=== PATIENT | male | born 1940 | race Caucasian/White ===

== ENCOUNTER 2021-11-06 17:48 | Inpatient (IN) | payer OTHER ==
[~2021-11-06] VITALS: Ht 172.7 cm; Wt 86.2 kg
[~2021-11-06 17:48] MED LIST: ACETAMINOPHEN325 M1 PO; ASPIRIN EC325 M1 PO; ASPIRIN EC81 M1 PO; CARVEDILOL25 MG PO; CENTRUM TABLET1 TAB OR; COLACE100 MG PO; COMBIVENT INH; FISH OIL 1,0001 EAC5 PO; FISHOIL PO; FLOMAX PO; GLUCOPHAGE500 MG PO; GLUCOSAMINE &1 EAC1 PO; HYDROCHLOROTHIA25 M1 PO; LANTUS SQ; LIPITOR40 MG PO; LISINOPRIL10 MG PO; LISINOPRIL20 MG PO; LORTAB 5-500 T1 EAC1 PO; NITROGLYCERIN0.4 MG SL; NOVOLOG100 UNIT/1; POTASSIUM20 PO; SILVADENE20 GM TP; SIMVASTATIN40 MG PO; TOPROL XL50 MG PO; VALIUM5 MG PO; VITAMIN B-12500 MCG PO
[2021-11-06 17:55] VITALS: BP 193/88
[2021-11-06 18:17] LABS: ABSOLUTE NEUTROPHILS 4.8 thou/uL (1.4-8.2); EOSINOPHILS 1.8 % (0.0-3.0); HEMATOCRIT 47.3 % (42.0-52.0); HEMOGLOBIN 16.2 gm/dL (14.0-18.0); LYMPHOCYTES 24.9 % (24.0-44.0); MCH 30.7 pg (26.0-34.0); MCHC 34.3 g/dL (28.0-37.0); MCV 89.5 fL (80.0-100.0); MONOCYTES 11.7 % (1.0-8.0); PLATELET COUNT 210 thou/uL (150-400); POLYS 60.6 % (36.0-66.0); RBC 5.29 mil/uL (4.50-6.00); RDW 13.8 % (10.5-14.5)
[2021-11-06 18:31] LABS: CALCIUM 9.4 mg/dL (8.5-10.1); CREATININE 1.4 mg/dL (0.7-1.3); POTASSIUM 4.4 mmol/L (3.5-5.1)
[2021-11-06 18:36] LABS: ALBUMIN 3.8 g/dL (3.4-5.0); DIRECT BILIRUBIN 0.1 mg/dL (<0.1-0.2); TOTAL BILIRUBIN 0.4 mg/dL (0.2-1.0); TOTAL PROTEIN 7.1 g/dL (6.4-8.2)
[2021-11-06 18:43] LABS: URINE BILIRUBIN NEGATIVE (Negative); URINE BLOOD TRACE (Negative); URINE CLARITY CLEAR; URINE COLOR YELLOW; URINE GLUCOSE-RANDOM* 3+ (Negative); URINE KETONES NEGATIVE (Negative); URINE LEUKOCYTES-REFLEX NEGATIVE (Negative); URINE NITRITE-REFLEX NEGATIVE (Negative); URINE PROTEIN (DIPSTICK) 2+ (Negative); URINE SPECIFIC GRAVITY 1.025 (1.005-1.035); URINE UROBILINOGEN 0.2 E.U./dl (0.2-1.0)
[2021-11-06 18:58] LABS: BACTERIA-REFLEX 1-9 Few /HPF (None Seen); CASTS None Seen /LPF (None Seen); CRYSTALS None Seen /LPF (None Seen); SQUAMOUS 0-3 Few /LPF (0-3); URINE RBC 1-2 Rare /HPF (NONE SEEN); URINE WBC-REFLEX 0-5 Rare /HPF (0-5)
--- NOTE | 2021-11-06 19:06 | NUR ---
Pt report given to CALLIE Ya
[2021-11-06 19:27] LABS: INR 0.97; PROTIME 10.6 Seconds (10.5-12.1)
[2021-11-06 21:37] VITALS: BP 165/94
[2021-11-06 21:46] VITALS: BP 129/50
[2021-11-06 22:07] VITALS: BP 146/104
--- NOTE | 2021-11-06 22:17 | NUR ---
ADMISSION: PT ARRIVED ON THE UNIT AT 3482
[2021-11-07 03:38] VITALS: BP 133/72
[2021-11-07 05:15] LABS: CHOLESTEROL 182 mg/dL (<200); HDL CHOLESTEROL 36 mg/dL (>40); HEMATOCRIT 41.6 % (42.0-52.0); HEMOGLOBIN 14.3 gm/dL (14.0-18.0); LDL CHOLESTEROL 124 mg/dL (<100); MCHC 34.5 g/dL (28.0-37.0); MCV 89.8 fL (80.0-100.0); RBC 4.63 mil/uL (4.50-6.00); RDW 13.7 % (10.5-14.5); TC:HDL 5.1 Ratio (Not establshd); TRIGLYCERIDE 110 mg/dL (<150); VLDL 22 mg/dL (<40); WBC 6.1 thou/uL (4.0-11.0)
[2021-11-07 05:27] LABS: CALCIUM 8.2 mg/dL (8.5-10.1); CREATININE 1.1 mg/dL (0.7-1.3); MAGNESIUM 1.8 mg/dL (1.8-2.4); POTASSIUM 3.5 mmol/L (3.5-5.1)
[2021-11-07 05:39] LABS: SERUM ASSESSMENT Clear
[2021-11-07 06:55] VITALS: BP 115/72
--- NOTE | 2021-11-07 07:07 | EKG ---
[place] [address] [facility] [email or web address] [address] ELECTROCARDIOGRAM REPORT Name: FLOR ISSA Room #: 361-P ADM IN M.R.#: [id number] Admission: 11/06/21 Attend Phys: Hernan Prado MD Discharge: Date of : 42 Report #: [id number] [facility] ED Test Date: 2021-11-06 Test Time: 17:59:49 Pat Name: FLOR ISSA Department: Room: 361 Gender: M Project Designer: : 1940 Requested By: Eric Peterson Order Number: [id number] MD: Blake Oviedo Measurements Intervals Una Rate: 110 P: ID: QRS: -6 QRSD: 131 T: 18 QT: 357 QTc: 484 Interpretive Statements Trigeminy Right bundle branch block Baseline wander in lead(s) V5,V6 Compared to ECG 07/04/2011 08:04:34 Right bundle-branch block now present Sinus rhythm no longer present Electronically Signed On 11-07-2021 7:07:23 BILLET BED OPERATOR by Blake Oviedo [email or web address] <ELECTRONICALLY SIGNED> By: Blake Oviedo MD, [facility] [id number] Blake Oviedo MD, FAC /EPI
--- NOTE | 2021-11-07 11:38 | 2DMMODE ---
[facility] [place] [address] [place] [address] 2 D/M-MODE ECHOCARDIOGRAM Name: FLOR ISSA Room #: 361-P ADM IN M.R.#: [id number] Admission: 11/06/21 Attend Phys: Hernan Prado MD Discharge: Date of : 42 Report #: [id number] THIS REPORT FOR: cc: Manuel Parr MD,Chris Nevarez MD, MD ~ APPROVED REPORT Study performed: 11/07/2021 10:33:37 EXAM: Comprehensive 2D, Doppler, and color-flow Echocardiogram Patient Location: Bedside Room #: 361 Status: routine BSA: 1.99 HR: 100 bpm BP: 115/72 mmHg Rhythm: RBBB/PVCs Other Information Study Quality: Good Technically limited study due to bi/trigeminy PVCs. Indications CVA. Hx: NV, Afib, DM, HTN, HLP. Echo Enhancing Agent Indication: Rule out Shunt Agent(s) / Amount(s) Used: Agitated Saline 7 cc 2D Dimensions IVSd: 11.16 (7-11mm) LVOT Diam: 21.46 (18-24mm) LVDd: 58.38 mm PWd: 9.53 (7-11mm) LVDs: 48.60 (25-40mm) Left Atrium: 47.23 (27-40mm) Aortic Root: 42.60 mm Volumes Left Atrial Volume (Systole) Single Plane 4CH: 90.60 mL Single Plane 2CH: 103.35 mL LA ESV Index: 52.00 mL/m2 [facility] [place] [address] 2 D/M-MODE ECHOCARDIOGRAM Name: MAEGANFLOR Room #: 361-P ADM IN M.R.#: [id number] Admission: 11/06/21 Attend Phys: Hernan Prado MD Discharge: Date of : 42 Report #: [id number] Aortic Valve AoV Peak Ruben.: 0.92 m/s AO Peak Gr.: 3.40 mmHg LVOT Max P.65 mmHg LVOT Max V: 0.64 m/s ANDRY Vmax: 2.52 cm2 Pulmonary Valve PV Peak Ruben.: 0.89 m/s PV Peak Gr.: 3.20 mmHg Tricuspid Valve TR Peak Ruben.: 2.89 m/s RAP Estimate: 5.00 mmHg TR Peak Gr.: 34.00 mmHg PA Pressure: 39.00 mmHg Left Ventricle Left ventricle is at the upper limits of normal. mild inferoseptal hypokinesis There is normal left ventricular wall thickness. Left ventricular systolic function is mild to moderately decreased. LVEF is 40-45% (Frequent PVCs). This study is not technically sufficient to allow evaluation of the LV diastolic function. Right Ventricle The right ventricle is normal size. The right ventricular systolic function is normal. Atria Left atrium is dilated. No shunting noted with bubble study. Right atrium is at the upper limits of normal. Aortic Valve Aortic valve is trileaflet; mildly calcified. Trace aortic regurgitation. There is no aortic valvular stenosis. Mitral Valve The mitral valve is normal in structure. Moderate to severe mitral regurgitation. Tricuspid Valve The tricuspid valve is normal in structure. Trace to mild tricuspid regurgitation. Estimated PAP is 40mmHg. Pulmonic Valve The pulmonary valve is normal in structure. Trace pulmonic regurgitation. [facility] [address] [place] [address] 2 D/M-MODE ECHOCARDIOGRAM Name: FLOR ISSA Room #: 361-P ADM IN M.R.#: [id number] Admission: 11/06/21 Attend Phys: Hernan Prado MD Discharge: Date of : 42 Report #: [id number] Great Vessels Aortic root is dilated (4.3cm). Ascending aorta is not well visualized. IVC is normal in size and collapses >50% with inspiration. Pericardium There is no pericardial effusion. <Conclusion> Left ventricle is at the upper limits of normal. There is normal left ventricular wall thickness. LVEF is 40-45% (Frequent PVCs). mild inferoseptal hypokinesis The right ventricle is normal size. Left atrium is dilated. Aortic valve is trileaflet; mildly calcified. Trace aortic regurgitation. The mitral valve is normal in structure. Moderate mitral regurgitation. The tricuspid valve is normal in structure. Trace to mild tricuspid regurgitation. Estimated PAP is 40mmHg. The pulmonary valve is normal in structure. Trace pulmonic regurgitation. Aortic root is dilated (4.3cm). There is no pericardial effusion. No shunting noted with bubble study. <ELECTRONICALLY SIGNED> By: Chris Lea MD 11/07/21 1137 1137 113 Chris Lea MD /INF
--- NOTE | 2021-11-07 13:07 | NUR ---
CARE ASSUMED THIS AM, PT IS ALERT TO SELF. ABLE TO FOLLOW SOME COMMANDS. EXPRESSIVE APHASIA PRESENT. UNABLE TO TELL ME HIS FULL NAME OR . NIH SCORE 7. PT NEEDS MINIMAL ASSIT TO BATHROOM, STEADY ON FEET. NO DRIFT NOTED ON EXTREMITIES. UO IN THE CHAIR MICHAELLE. WAITING FOR MRI. CONSULT TO NEURO PLACED PER DR. ERNST VERBAL ORDER. TRIED CALLING PT FOR MRI SCREENING SHEET UNABLE TO REACH HER. WAS ABLE TO REACH PT YOHANARTRISH. MRI SCREENING SHEET COMPLTED AND FAX BACK TO MRI. FALL PRECAUTIONS IN PLACE.
--- NOTE | 2021-11-07 15:37 | NUR ---
PER REYNA ARRIETA INITIAL ASSESSMENT: MEENAKSHI spoke with nursing and attending physician. Pt was admitted from home due to CVA. Therapy evals ordered and 5N consulted. Pt is unable to participate in conversation due to aphasia. MEENAKSHI spoke with pt's , Mira, via phone. Introduced role of SW. Pt's states that over the weekend, pt was not able to complete conversations. Pt has not been taking his medications or following his diet. Pt's PCP is Dr. Shawn Salazar. Pt does not use any DME for ambulation. No hx of services or post-acute placement. Pt's states that she and pt have been since 1983. Pt's children and her children are all involved in pt's care. MEENAKSHI spoke with pt's dtr, Lory, via phone. Introduced role of MEENAKSHI. Lory states that pt's does not always communicate with them and has not been managing his meds at home. Pt does not currently have a DPOA in place. MEENAKSHI discussed potential discharge needs. MEENAKSHI is following to assist as needed with discharge planning. SMITH Monroe
[2021-11-07 16:22] VITALS: BP 135/70
--- NOTE | 2021-11-07 18:36 | NUR ---
ASSUMED PATIENT CARE AT 1400. ALERT APHASIA. MRI SHOW ACUTE STROKE. UP WITH ASSISTED WALK. TOLERATED DIET. SLOWLY TOWARDS POC GOALS.
[2021-11-07 19:50] VITALS: BP 145/81
[2021-11-08 05:15] VITALS: BP 165/115
--- NOTE | 2021-11-08 06:43 | NUR ---
ASSUMED PT CARE AT 1900. PT ALERT & ORIENTED X 1-2. PT HAS APHASIA AND BECOMES FRUSTRATED WHEN HE IS UNABLE TO EXPRESS NEEDS. PT HAD BOWEL INCONTINENCE THIS SHIFT HOWEVER PT IS ABLE TO USE URINAL AT BEDSIDE ADEQUATELY. PT IS AFIB ON TELE MONITOR. NIH STROKE SCORE AT 5. CONTINUES TO HAVE IVF INFUSING. VSS AFEBRILE. BED ALARM ON AND CALL LIGHT WITHIN REACH. ALL NEEDS ARE MET AT THIS TIME.
[2021-11-08 07:08] LABS: GLYCOHEMOGLOBIN (HGB A1C) 12.6 % (4.8-5.6)
--- NOTE | 2021-11-08 14:55 | NUR ---
PATIENT ACCEPTED FOR ACUTE REHAB STAY AT [facility]. AUTHORIZATION FOR ACUTE REHAB STAY REQUESTED THIS DATE FROM PATIENT'S INSURANCE. WILL AWAIT INSURANCE RESPONSE. THANK YOU FOR THIS REFERRAL.
--- NOTE | 2021-11-08 15:00 | NUR ---
SW reviewed chart and spoke with nursing and attending physician. Pt is progressing towards goals for discharge. [facility] evaluated pt and can admit pending insurance auth. SW met with pt and son at bedside. Discussed 5N acceptance. Pt and son are agreeable with going to 5N. SW updated 5N vocational rehabilitation counselor and LEAD SYSTEMS ANALYST. Insurance auth started this afternoon. MEENAKSHI updated attending physician. SW is following to assist as needed with discharge planning
[2021-11-08 16:14] VITALS: BP 159/88
[2021-11-08 19:36] VITALS: BP 144/59
[2021-11-09 04:19] VITALS: BP 110/58
--- NOTE | 2021-11-09 06:07 | NUR ---
ASSUMED PT CARE AT 1900. PT IS RESTING COMFORTABLY IN BED. NO S/S OF DISTRESS. VSS AFEBRILE. NIH STROKE SCALE Q4 AND IT RANGED FROM 4-3. AFIB ON TELE MONITOR WITH PVCs PRESENT. WILL CONTINUE TO MONITOR. ALL NEEDS ARE MET AT THIS TIME.
[2021-11-09 07:15] VITALS: BP 130/77
[2021-11-09 15:18] VITALS: BP 111/82
[2021-11-09 19:14] VITALS: BP 99/57
[2021-11-10 02:10] LABS: HEMATOCRIT 39.7 % (42.0-52.0); HEMOGLOBIN 13.2 gm/dL (14.0-18.0); MCH 30.1 pg (26.0-34.0); MCHC 33.3 g/dL (28.0-37.0); MCV 90.3 fL (80.0-100.0); RBC 4.39 mil/uL (4.50-6.00); WBC 5.7 thou/uL (4.0-11.0)
[2021-11-10 02:12] LABS: CALCIUM 8.7 mg/dL (8.5-10.1); CREATININE 1.6 mg/dL (0.7-1.3); POTASSIUM 3.6 mmol/L (3.5-5.1)
[2021-11-10 03:39] VITALS: BP 107/55
--- NOTE | 2021-11-10 06:34 | NUR ---
CARE ASSUMED AT 1900. PT IS ALERT & ORIENTED X 2 (PERSON & PLACE). PT HAS HAD MULTIPLE BOUTS OF BRADYCARDIA ON TELE MONITOR ALONG WITH AFIB, PVCs, & BIGEMINY. MONITORING PT CLOSELY. PT IS ABLE TO EXPRESS NEEDS AND CONTINUES TO HAVE MILD TO MODERATE APHASIA. VSS AFEBRILE. WILL CONTINUE TO MONITOR.
[2021-11-10 07:31] VITALS: BP 130/63
[2021-11-10 15:53] VITALS: BP 101/49
[2021-11-10 20:00] VITALS: BP 89/35
[2021-11-10 20:17] VITALS: BP 123/47
[2021-11-11 03:25] VITALS: BP 115/51
[2021-11-11 07:46] VITALS: BP 133/63
--- NOTE | 2021-11-11 10:11 | NUR ---
PT NOTE FOR 7P-7A 11/10-11/11/21. PT ALERT AND ORIENTED X2. FORGETFUL AT TIMES. NIH Q 4 HRS STILL SAME SCORE. APHASIA IS IMPROVING. PT CAN FORM SENENCES NOW. SPEECH IS JUST SLIGHTLY SLURRED. HE HAD SOME DIFFICULTY WITH WORDS AND PICTURES ON NIH SCREEN. PT STRENGTH RETURNING ON BOTH ARMS AND LEGS NOW. VERY LITTLE FACIAL DROPONG NOTED. VSS AFEBRILE. BED DOWN HARRISON LIGHT IN REACH.
[2021-11-11] MEDS ORDERED: BAYER CHEWABLE81 MG PO (13:42)
[2021-11-11] MEDS ORDERED: CARVEDILOL12.5 MG PO (13:42)
[2021-11-11] MEDS ORDERED: PEPCID20 MG PO (13:42)
[2021-11-11] MEDS ORDERED: ELIQUIS5 MG PO (13:42)
[2021-11-11 16:08] VITALS: BP 122/65
--- NOTE | 2021-11-11 16:21 | NUR ---
DISCHARGE NOTE: SW reviewed chart and spoke with nursing and attending physician. Pt is medically stable to discharge to 5N today. SW discussed case with [facility] clinical rehab liaison, who states they did receive insurance auth and they can accept today. SW met with pt at bedside to provide update and discuss discharge. Pt is agreeable. Pt's dtr, Lory, was at bedside earlier today. Pt requests SW contact Lory and his , Mira, to notify of discharge. MEENAKSHI spoke with Mira via phone to provide update. Mira is agreeable with plan. Mira requested SW notifiy Lory. SW left voice message for Lory ([phone]). Pt to discharge to 5N later today. Rehab CM to follow and assist as needed with discharge planning.
--- NOTE | 2021-11-11 18:44 | NUR ---
PT TRANSFERED WITH ALL BELONGING TO FOR REHAB. VSS.
--- NOTE | 2021-11-12 10:11 | HC ---
[facility] [place] [address] [place] [address] CONSULTATION Name: FLOR ISSA Room #: 361-P [facility] IN M.R.#: [id number] Admission: 11/06/21 Attend Phys: Hernan Prado MD Discharge: 11/11/21 Date of : 42 Report #: [id number] THIS REPORT FOR: cc: Manuel Parr MD,Shawn Sexton,Franklyn Winters MD ~ DATE OF SERVICE: 11/07/2021 HISTORY OF PRESENT ILLNESS: This is an 81-year-old male patient who was evaluated by me for the possibility of stroke. The patient is completely aphasic. He is not able to provide any history at all. I reviewed the records in the computer. I talked to the nurse. I talked with the speech therapist and subsequently, I was able to reach the patient's and talked to her. Apparently, the patient's symptoms started about 5 days ago. He just having unusual speech. Before that, he has stopped taking his medication and medication for diabetes and the thought that was related to that. He came to Emergency Room and looks like he was seen by [facility]. I do not see the note there, but looks like they were consulted and then today, a routine neurological consultation was requested for us to follow up this patient. REVIEW OF SYSTEMS: Indicate the patient is diabetic, but he is noncompliant. He does not like to go to the hospital or stick with the treatment according to the patient's . The record indicate that he has multiple symptoms and diseases going on. He has a history of colon cancer, diabetes, hypertension, hyperlipidemia, myocardial infarction, and pretty pronounced medical noncompliance. PAST MEDICAL HISTORY: Positive for diabetes. FAMILY HISTORY: Negative for early age stroke, according to the as much as she knows. SOCIAL HISTORY: She says that he does not drink any alcohol or smoke. PHYSICAL EXAMINATION: The patient's examination indicate that this patient is alert and he is completely aphasic. He started to talk and he cannot finish. He cannot tell me what month it is. He did follow commands. He moves both sides symmetrically. He could not cooperate with the sensory examination. I cannot tell about visual field, but it does not appear to have any marked facial weakness. Cardiac examination indicate that he had lot of cardiac history in the past. Respiratory examination appeared unremarkable. LABORATORY DATA: White count is 6.1. GFR is 64. It looks like in the Emergency Room, he had a CT angiogram of the head and neck. CT angiogram shows pretty significant disease of the basilar artery. It also has diffuse disease on multiple places, but carotid looks mostly clean. His MRI is pending. [address] [address] CONSULTATION Name: FLOR ISSA Room #: 361-P DIS IN M.R.#: [id number] Admission: 11/06/21 Attend Phys: Hernan Prado MD Discharge: 11/11/21 Date of : 42 Report #: [id number] IMPRESSION: This patient most likely has a cerebrovascular accident. Left MCA distribution appeared to be his main problem. 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 He has a cardiac history, so we need to look for any source of cardioembolization especially to look for any atrial fibrillation this patient may have. Presently, I think we should put him on a combination of aspirin and Plavix. If any atrial fibrillation can be documented or has been previously documented, then the patient needs to be on anticoagulation. More than 50 minutes of time was spent taking care of this patient today, majority was spent counseling and coordinating by talking to multiple people above as well as reviewing his imaging study. Thank you very much for this referral. <ELECTRONICALLY SIGNED> By: Franklyn Sexton MD 11/12/21 1011 1348 30 Franklyn Sexton MD /nt
== END 2021-11-11 19:00 | DRG 64 ==
LOC: ER 17:48 → EROBS 20:39 → 3W 20:39
PROVIDERS: Nurse Practitioner Family; Psychiatry & Neurology Neuromuscular Medicine; Student in an Organized Health Care Education/Training Program; ADMIT Internal Medicine; ATTEND Internal Medicine
DX: I63.22 Cerebral infarction due to unspecified occlusion or stenosis of basilar artery (principal); G93.41 Metabolic encephalopathy; N17.0 Acute kidney failure with tubular necrosis; I69.354 Hemiplegia and hemiparesis following cerebral infarction affecting left non-dominant side; Z79.01 Long term (current) use of anticoagulants; Z20.822 Contact with and (suspected) exposure to COVID-19; I16.0 Hypertensive urgency; I10 Essential (primary) hypertension; E11.65 Type 2 diabetes mellitus with hyperglycemia; Z79.4 Long term (current) use of insulin; Z85.038 Personal history of other malignant neoplasm of large intestine; I48.0 Paroxysmal atrial fibrillation; R53.81 Other malaise; E53.8 Deficiency of other specified B group vitamins; E55.9 Vitamin D deficiency, unspecified
CPT/HCPCS: 10879

== ENCOUNTER 2021-11-11 14:38 | Inpatient (IN) | payer OTHER ==
[~2021-11-11] VITALS: Ht 172.7 cm; Wt 85.7 kg
[~2021-11-11 14:38] MED LIST changes: +BAYER CHEWABLE81 MG PO; +CARVEDILOL12.5 MG PO; +ELIQUIS5 MG PO; +PEPCID20 MG PO
--- NOTE | 2021-11-12 00:18 | NUR ---
PT ARRIVED TO FLOOR PRIOR TO SHIFT CHANGE. ADMIT HISOTYR PERFORMED TO BEST OF THIS RN'S ABILITY. PT IS ABLE OT EXPRESS NEEDS BUT IS IMPULSIVE AND MODERATELY DIFICULT TO REDIRECT. ADMIT EDUCATION PROVIDED- REINFORCEMENT NEEDED. PT WAS A STANDBY ASSIST WITH GATEBELT TO THE RESTROOM. HIGH FALL RISK PRECAUTIONS IN PLACE DUE TO IMPUSLIVE BEHAVIOR AND MEMORY CONCERNS.
[2021-11-12 03:09] LABS: ABSOLUTE NEUTROPHILS 3.9 thou/uL (1.4-8.2); BASOPHILS 0.4 % (0.0-2.0); EOSINOPHILS 2.4 % (0.0-3.0); HEMOGLOBIN 13.4 gm/dL (14.0-18.0); MCH 30.4 pg (26.0-34.0); MCHC 33.6 g/dL (28.0-37.0); MCV 90.7 fL (80.0-100.0); PLATELET COUNT 181 thou/uL (150-400); POLYS 61.2 % (36.0-66.0); RBC 4.41 mil/uL (4.50-6.00); RDW 13.8 % (10.5-14.5); WBC 6.4 thou/uL (4.0-11.0)
[2021-11-12 03:25] LABS: ALBUMIN 2.9 g/dL (3.4-5.0); CALCIUM 8.6 mg/dL (8.5-10.1); CREATININE 1.3 mg/dL (0.7-1.3); TOTAL BILIRUBIN 0.5 mg/dL (0.2-1.0); TOTAL PROTEIN 5.5 g/dL (6.4-8.2)
[2021-11-12 08:00] VITALS: BP 130/54
--- NOTE | 2021-11-12 12:26 | NUR ---
Nutrition: pt admitted to rehab unit with CVA. Consult received. Pt eating 100% of meals on Carb controlled diet. BG 159-187. A1C 12.6. Pt voiced he thinks he has had DM "all his life". Both /pt voice not following a diet or having education in the past. RD discussed need for diet review prior to D/C. Will followup on this closer to then when family present. Will also add 2 gm Na diet order with hx CVA. Followup weekly.
--- NOTE | 2021-11-12 15:39 | NUR ---
81 yr old male. Came to ED with AMS. MRI confirmed left hemispheric acute/subacute stroke. neurology consulted. prior to admit patient lives at home with his Mira # [phone] or in a ranch style house. No stairs that he has to do. No DME. independent with ADLs and shares IADLs. Drives vehicle. Noted per chart review, Lory, daughter # [phone] reported patients had not been managing his medications and he had not been taking meds/diet as prescribed. PCP dr Salazar. Will cont. following as needed
[2021-11-12 19:30] VITALS: BP 108/61
--- NOTE | 2021-11-12 19:38 | NUR ---
THIS NURSE ASSUMED CARE OF PATIENT AT 0700. PATIENT A&O X 3 WITH LITTLE FORGETFULNESS. PATIENT ON ROOM AIR AND UP WITH STANDBY ASSIST. PATIENT VOIDS IN URINAL AND GOES TO TOILET. PATIENT SIGNED CONSENT FORMS EARLY THIS MORNING AND THIS NURSE PLACED IN CHART. PATIENT HAD VISITORS THIS MORNING AND AFTERNOON.
--- NOTE | 2021-11-13 02:51 | NUR ---
PT IS A MINIMAL ASSIST WITH DRESSING AND SOME ADL ACTIVITIES. IT APPEARS TO BE HARD FOR HIM TO FOLLOW COMMANDS AT NIGHT. HE REMAINS CONTINENT OF BOWEL AND BLADDER BUT NEEDS SUPERVISION AFTER VOIDING- PT VOIDED IN URINAL BUT THEN UTILIZED FULL URINAL A PILLOW. FULL BEDDING AND CLOTHING CHANGE PROVIDED. PT IS AWAKE, RESTING BED, AND APPEARS TO BE TALKING TO HIMSELF- WHEN QUESTIONED PT HAS NO UNDERSTANDING THAT HE IS TALKING TO HIMSELF. VVS. PT OS ORIENTED TO PERSON, PLACE, LOOSE TIME, BUT NO SITUATIONAL AWARENESS. HE REPORTS FEELING LIKE HE IS "IN THAT MOVIE WHERE HE LIVES THE SAME DAY OVER AND OVER AGAIN"
[2021-11-13 08:00] VITALS: BP 121/59
--- NOTE | 2021-11-13 18:49 | NUR ---
Assumed care of patient at 0700. Oriented x 4, lung sounds clear over diminished, heart tones normal but slightly bradycardic. AM Carvedilol held. Pt up to ambulate with PT/OT multiple times today. States he is feeling better but still has some concerns about his expressive aphasia. Evening VS showed bradycardia from 35-45, 1800 carvedilol held again. Not symptomatic. No concerns at this time.
[2021-11-13 19:23] VITALS: BP 121/54
[2021-11-14 08:00] VITALS: BP 149/64
--- NOTE | 2021-11-14 14:44 | NUR ---
Team meeting, recommendation: assist with medication and finances. On regular diet. Start time voids. Outpatient neuro- bi specialist. Stand by assist with ot and pt. Dc tue 11/19 with speech, ot, and nursing. No driving till cleared by his PCP. CM visited with patient and his daughter at bedside, they requested to see if dc could be moved to 11/17/21 because makenzie going to stay with his son rush in [facility], [address], [place] [place] [facility] [address]. phone # [phone]. CM passed on information to and will see if ok to dc early. Son Rush will need education from bedside nurse on DM and insulin. Rush going to help manage his medication.
--- NOTE | 2021-11-14 16:13 | NUR ---
PT PLEASANT AND COOPERATIVE. COMPLIANT WITH MEDICATIONS. HELD AM COREG D/T PULSE BEING 40. OSMANI, DIRECTOR PROCESS ENGINEERING, NOTIFIED AND MED CHANGES MADE. PARTICIPATED IN THERAPIES TODAY. TO START TIMED VOIDING. SALINE LOCK DC'D. CATHETER TIP INTACT. PT TOLERATED WELL. DENIES PAIN OR DISCOMFORT.
--- NOTE | 2021-11-14 17:29 | NUR ---
ALSO HELD PT'S 1700 DOSE OF COREG D/T PULSE BEING 44. THIS WAS TAKEN MANUALLY.
[2021-11-14 19:19] VITALS: BP 125/44
--- NOTE | 2021-11-15 04:15 | NUR ---
Assumed care on 11/14/21 @ 1915/ A&Ox4, cooperative with care and pleasant affect noted. VSS, HRRR, Lung sounds CTA bilat, ABD N x4Q. BM today, continent of B&B FSBS 77, no S/S insulin indicated, snack of applesauce, milk and grahm cracker with peanut butter provided. Bed in low position, Call alarm is within reach.
[2021-11-15 09:07] VITALS: BP 115/68
--- NOTE | 2021-11-15 12:34 | NUR ---
PT PLEASANT AND COOPERATIVE. HAS BEEN COMPLIANT WITH MEDICATIONS. HELD AM COREG AND LISINOPRIL PER PARAMETERS. IVELISSE KEEN, NOTIFIED OF PULSE BEING 48 MANUALLY. HAS PARTICIPATED IN THERAPIES TODAY. DENIES PAIN OR DISCOMFORT.
[2021-11-15] MEDS ORDERED: ELIQUIS5 MG PO (14:57)
--- NOTE | 2021-11-15 15:10 | NUR ---
Dc date moved to 11/17 , son Rush will be picking him up. CM spoke with daughter to verify Rush number is . CM provide ability laurita number to daughter Lory. Called son Rush left message. Robin will be stay at his son house [address], [facility] [address]. Number for ability laurita therapy as well.
[2021-11-15] MEDS ORDERED: VITAMIN D325 MC2 PO (15:22)
[2021-11-15] MEDS ORDERED: LIPITOR40 MG PO (15:22)
[2021-11-15] MEDS ORDERED: METFORMIN HCL500 MG PO (15:22)
[2021-11-15] MEDS ORDERED: COREG3.125 MG PO (15:22)
[2021-11-15] MEDS ORDERED: PEPCID20 MG PO (15:22)
[2021-11-15] MEDS ORDERED: TRADJENTA5 MG PO (15:22)
--- NOTE | 2021-11-15 15:25 | NUR ---
Dc date moved to 11/17 , son Rush will be picking him up. CM spoke with daughter to verify Rush number is . CM provide ability laurita number to daughter Lory. Called son Rush left message. Robin will be stay at his son house [address] [facility], [facility] [address]. [facility] [phone], fax #
[2021-11-15 15:26] VITALS: BP 115/68
[2021-11-15 16:32] VITALS: BP 115/68
--- NOTE | 2021-11-15 16:36 | NUR ---
1700 COREG WAS HELD D/T PULSE BEING BELOW PARAMETERS. PULSE WAS 50 MANUALLY AND BP 131/46.
[2021-11-15 20:00] VITALS: BP 132/55
--- NOTE | 2021-11-15 22:50 | NUR ---
PT ASSESSMENT COMPLETED AND VSS. MEDS GIVEN ORDERED AND WELL TOLERATED. FALL PRECAUTIONS IN PLACE. PT SITTING UP IN CHAIR EARLY DURING SHIFT. PT VOIDING PER URINAL. INC AT TIMES. ASST WITH REPOSITION FOR COMFORT. PT SLEEPING WELL AT THIS TIME. WILL CONTINUE TO MONITOR FREQUENTLY.
[2021-11-16 06:12] LABS: ABSOLUTE NEUTROPHILS 10.4 thou/uL (1.4-8.2); BASOPHILS 0.1 % (0.0-2.0); EOSINOPHILS 0.5 % (0.0-3.0); HEMATOCRIT 41.9 % (42.0-52.0); LYMPHOCYTES 5.4 % (24.0-44.0); MCH 30.6 pg (26.0-34.0); MCHC 33.5 g/dL (28.0-37.0); MCV 91.1 fL (80.0-100.0); MONOCYTES 8.1 % (1.0-8.0); PLATELET COUNT 192 thou/uL (150-400); POLYS 85.9 % (36.0-66.0); RDW 13.6 % (10.5-14.5); WBC 12.1 thou/uL (4.0-11.0)
[2021-11-16 06:19] LABS: CALCIUM 8.6 mg/dL (8.5-10.1); CREATININE 1.4 mg/dL (0.7-1.3); POTASSIUM 4.6 mmol/L (3.5-5.1)
--- NOTE | 2021-11-16 07:37 | NUR ---
LATE LAST NIGHT PT HAD A LIGHT MEDINA LIQUID INCONTINENT STOOL. EARLY THIS MORNING PT HAD ANOTHER VERY LARGE INCONTINENT LIGHT BROWN STOOL. PTS ABD WAS SUDDENLY VERY DISTENDED AND PT WAS VERY UNCOMFORTABLE. PT STATED THAT HE HAD NEVER FELT LIKE THIS BEFORE. PT HAD TWO LARGE COFFEE GROUND APPEARING EMESIS. THERE DID APPEAR TO BE SOME SILVIO BLOOD IN THE EMESIS. CONTACTED IVELISSE SANTANA AND MARGARITA WONG REGARDING ACUTE PT CHANGES LISTED ABOVE. VSS AT THE TIME. PT WAS VERY DROWSY SLEEPING ON AND OFF WHEN TALKING WITH HIM. IVELISSE SANTANA ORDERED STAT CT ABD, OCCULT STOOL AND EMESIS, PROTONIX 40 IVP STAT, CBC, BMP, ETC. ALL COMPLETED AND PT BROUGHT TO CT. CT STAFF STATED THAT PTS BELLY WAS FULL. CONTACTED IVELISSE SANTANA WITH CONCERNS AND AT THE TIME WAS ASKED TO TAKE PT DIRECTLY TO TELE. REPORT GIVEN TO CALLIE PAREDES. CONTACTED PATIENTS DAUGHTER TRISH, DESIGNATED PT LEAD CARGO MOVER. UPDATED HER ABOUT PT TRANSFER PER PT REQUEST. PT ARRIVED TO [facility].
--- NOTE | 2021-11-17 12:52 | HC ---
[facility] [place] [place] [address] CONSULTATION Name: FLOR ISSA Room #: 504-1 [facility] IN ..#: [id number] Admission: 11/11/21 Attend Phys: Darron Lopez MD Discharge: 11/16/21 Date of : 42 Report #: [id number] THIS REPORT FOR: cc: Shawn Salazar MD, Stanley P. MD Deutch,Murray Lopez. PhD ~ DATE OF SERVICE: 11/16/2021 NEUROBEHAVIORAL STATUS EXAM ATTENDING PHYSICIAN: Darron Lopez M.D. APRON CLEANER: Murray Townsend, PhD CLINICAL PRESENTATION: The patient is an 81-year-old male admitted to the rehabilitation unit at [facility] with altered mental status. An MRI of the brain revealed a left hemispheric acute/subacute stroke. He also had a very elevated A1c indicating poor managment of his diabetes. Diagnoses upon admiossion included basilar artery occlusion, left hemispheric acute/subacute CVA, aphasia, type 2 diabetes mellitus, basilar artery occlusion, hypertension, AFib and acute kidney injury. Prior to this most recent medical event, the patient was living independently with his in their home. He is reported to have been independent with basic and instrumental ADLs, however, he had not been taking his medication or managing his diabetes for about one year. The patient is for the second time with four children. He is a high school graduate. His employment was [employer] work. He is also a of the [place] [employer]. He has 3 siblings. His family is very supportive. TECHNIQUES UTILIZED: Clinical interview, brief mini mental status exam and family interview - daughter. EXAMINATION FINDINGS: The patient was alert and cooperative during the interview. However, he had difficulty with describing the reason for his hospitalization. Confabulation was noticed as he described problems that he was having with daily functioning. As indicated, he had been noncompliant with management of his medication and diabetes. His had been providing assistance with bill paying. The daughter indicates that family has noticed a decline in functioning for the last several years. However, he was driving independently until this most recent hospitalization. Remote history of alcohol abuse with sobriety for about 40 years. Performance on the brief MMSE 2 was extremely low. He was not oriented to day, date, month or season. Perservation was noted during the assessment. It should be noted that he had recently been transferred from rehab to an [facility] [address] [place] [address] CONSULTATION Name: MAEGANFLOR Jessica Room #: 504-1 [facility]#: [id number] Admission: 11/11/21 Attend Phys: Darron Lopez MD Discharge: 11/16/21 Date of : 42 Report #: [id number] floor for evaluation and treatment following an episode of vomiting. While he may be experiencing an acute delirium, his family describe his cognition as similar to prior functioning preceding this recent transfer from rehab. A more formal neuropsych assessment was not initiated because of the patient's acute medical condition. I discussed outpatient followup for a more thorough neuropsychological evaluation with resolution of his acute medical needs. Currently, the patient is presenting with deficits in cognition. He has a preexisting decline in cognition reportedly over the last several years. Additionally, he has not been adequately managing his medical condition. 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 Alzheimer type feathers cannot be completely ruled out. Follow up neuropsychological testing is indicated. Following discharge, the patient should not return to driving until either a behind the wheel driving evaluation or neuropsychological assessment is completed. Additionally, his family should assist with medical, financial and nutrtional managment. Continued speech therapy is indicated to assist with development and implementation of compensatory strategies along with family education. Thank you very much for allowing me to provide the consultation on this patient. <ELECTRONICALLY SIGNED> By: Murray Townsend, PhD 11/17/21 1252 1559 Murray Townsend, PhD /nt
== END 2021-11-16 06:34 | disposition short-term general hospital (02) | DRG 56 ==
PROVIDERS: Nurse Practitioner Family; ADMIT Physical Medicine & Rehabilitation; ATTEND Physical Medicine & Rehabilitation
DX: G81.94 Hemiplegia, unspecified affecting left nondominant side (principal); I63.9 Cerebral infarction, unspecified; E44.0 Moderate protein-calorie malnutrition; N17.9 Acute kidney failure, unspecified; R47.01 Aphasia; E11.9 Type 2 diabetes mellitus without complications; I10 Essential (primary) hypertension; E78.5 Hyperlipidemia, unspecified; I48.0 Paroxysmal atrial fibrillation; E66.9 Obesity, unspecified; E53.8 Deficiency of other specified B group vitamins; E55.9 Vitamin D deficiency, unspecified; I65.1 Occlusion and stenosis of basilar artery; Z85.038 Personal history of other malignant neoplasm of large intestine; Z79.82 Long term (current) use of aspirin; Z79.899 Other long term (current) drug therapy; Z92.21 Personal history of antineoplastic chemotherapy; Z92.3 Personal history of irradiation; Z93.2 Ileostomy status; Z79.4 Long term (current) use of insulin; Z87.891 Personal history of nicotine dependence; Z68.28 Body mass index [BMI] 28.0-28.9, adult
CPT/HCPCS: 10112

== ENCOUNTER 2021-11-16 06:50 | Inpatient (IN) | payer OTHER ==
[~2021-11-16] VITALS: Ht 182.9 cm; Wt 89.4 kg
[~2021-11-16 06:50] MED LIST changes: +COREG3.125 MG PO; +METFORMIN HCL500 MG PO; +TRADJENTA5 MG PO; +VITAMIN D325 MC2 PO
[2021-11-16 06:57] VITALS: BP 138/64; BP 138/645
--- NOTE | 2021-11-16 08:45 | NUR ---
PT ADMITTED DIRECTLY TO [address] [place] [address] [place] [address] AFTER NS TOOK HIM DOWN TO CT SCAN. REPORT GIVEN HERE ON AT APPROXIMATELY 0625 AM. PT NOT ADMITTED IN COMPUTER UNTIL CHANGE OF SHIFT REPORT. REPORT GIVEN TO ELVIE LEDESMA PT NOT ADMITTED YET AND STILL NEED TO CALL DR MORRIS FOR ORDERS. FEW ORDERS GIVEN BY IVELISSE SANTANA PLACED IN COMPUTER ORDERED.
[2021-11-16 11:24] VITALS: BP 144/67
[2021-11-16 14:17] LABS: HEMATOCRIT 42.3 % (42.0-52.0); MCH 30.7 pg (26.0-34.0); MCHC 33.1 g/dL (28.0-37.0); MCV 92.6 fL (80.0-100.0); RBC 4.57 mil/uL (4.50-6.00); RDW 13.6 % (10.5-14.5); WBC 9.1 thou/uL (4.0-11.0)
[2021-11-16 14:34] LABS: CALCIUM 8.2 mg/dL (8.5-10.1); CREATININE 1.4 mg/dL (0.7-1.3); INR 1.09; POTASSIUM 4.6 mmol/L (3.5-5.1); PROTIME 11.8 Seconds (10.5-12.1)
[2021-11-16 14:39] LABS: ALBUMIN 3.2 g/dL (3.4-5.0); TOTAL BILIRUBIN 0.7 mg/dL (0.2-1.0); TOTAL PROTEIN 6.1 g/dL (6.4-8.2)
[2021-11-16 15:25] VITALS: BP 135/63
--- NOTE | 2021-11-16 17:34 | NUR ---
TOOK OVER CARE OF PT AT 0700. PT IS PROGRESSING TOWARD GOAL OF DISCHARGE. THE PT'S EDEMA CONTINUES TO IMPROVE WELL HER BREATHING. PT IS ALERT AND ORIENTED X 2-3 BUT IS VERY COOPERATIVE WITH HER CARE. PT IS ON A 1200ML FL RESTRICTION AND IS RIGHT AT IT NO, SO CANNOT HAVE ANY MORE FLUIDS THIS EVENING.
--- NOTE | 2021-11-16 17:44 | NUR ---
TOOK OVER CARE OF PT AT 0700. PT ARRIVED FROM 5N WITH COFFEE GROUND EMISIS. PLACED AN NG WITH INTERMITTANT, LOW SUCTION. PT IS A&OX 4 WITH CONFUSION AT TIMES. HIS LASIX WAS HELD DUE TO POS. GI BLEED. PT REMAINS ON PROTONIX AND NS. A PARTIAL BOWL OBSTRUSTION HAS BEEN CONFIRMED BY XRAY.
[2021-11-16 19:23] VITALS: BP 133/75
[2021-11-17 03:52] VITALS: BP 143/65
[2021-11-17 05:30] LABS: HEMATOCRIT 40.6 % (42.0-52.0); HEMOGLOBIN 13.6 gm/dL (14.0-18.0); MCH 30.6 pg (26.0-34.0); MCHC 33.6 g/dL (28.0-37.0); MCV 91.1 fL (80.0-100.0); RBC 4.45 mil/uL (4.50-6.00); RDW 13.7 % (10.5-14.5); WBC 8.3 thou/uL (4.0-11.0)
[2021-11-17 05:37] LABS: CALCIUM 8.5 mg/dL (8.5-10.1); CREATININE 1.1 mg/dL (0.7-1.3)
[2021-11-17 07:34] VITALS: BP 135/71
[2021-11-17 11:23] VITALS: BP 146/65
[2021-11-17 15:19] VITALS: BP 150/51
--- NOTE | 2021-11-17 16:25 | NUR ---
CARE ASSUMED THIS AM, ALERT AND ORIENTED X4, FORGETFULS AT TIMES. DENIES ANY PAIN, NAUSEA AND VOMITTING. GI DOCTOR ROUNDING, GAVE ORDERS TO CLAMP NG AND GIVE PT TAP ENEMA. PT HAD A MOD BM AFTERWARDS. TOOK PT ON A WALK. ANTICIPATING FOR EGD TOMORROW. UP IN THE CHAIR MICHAELLE, FALL PRECAUTIONS IN PLACE. WILL CONTINUE TO MONITOR.
[2021-11-17 19:54] VITALS: BP 131/54
[2021-11-18 03:23] VITALS: BP 124/54
[2021-11-18 04:45] LABS: HEMATOCRIT 40.8 % (42.0-52.0); HEMOGLOBIN 13.8 gm/dL (14.0-18.0); MCH 30.8 pg (26.0-34.0); MCHC 33.9 g/dL (28.0-37.0); MCV 90.8 fL (80.0-100.0); RBC 4.49 mil/uL (4.50-6.00); RDW 13.4 % (10.5-14.5); WBC 9.3 thou/uL (4.0-11.0)
[2021-11-18 04:51] LABS: CALCIUM 7.9 mg/dL (8.5-10.1); POTASSIUM 3.5 mmol/L (3.5-5.1)
--- NOTE | 2021-11-18 06:08 | NUR ---
Patient makind slow progress towards outcome goals. Vital signs and rhythm stable. NPO after MN for EGD. IVFluids and Protonix drip infusing. Denies pain. No active signs of bleeding. High fall risks, fall precautions in place.
[2021-11-18 07:29] VITALS: BP 146/61
[2021-11-18 11:15] VITALS: BP 126/69
[2021-11-18 17:24] VITALS: BP 145/62
--- NOTE | 2021-11-18 17:56 | NUR ---
TOOK OVER CARE OF THE PT AT 0700. PT IS PROGRESSING TOWARD GOAL OF DISCHARGE. PT HAD EGD TODAY SHOWING NO BLOCKAGES OR BLEDING IN THE UPPER GI. THE PY NG TUBE WAS DC'D. PT IS A&OX 4 WITH OCCASIONAL FORGETFULNESS. PT SLEPT MOST OF THE DAY BUT WAS COOPERATIVE WITH ALL FOOD.
[2021-11-18 19:08] VITALS: BP 138/66
== END 2021-11-19 | disposition home health service (06) | DRG 388 ==
LOC: 3W 06:50
PROVIDERS: ADMIT Hospitalist; ATTEND Hospitalist
PROC: 0D9670Z Drainage of Stomach with Drainage Device, Via Natural or Artificial Opening (ICD-10-PCS; principal; 2021-11-16)
PROC: 0DJ08ZZ Inspection of Upper Intestinal Tract, Via Natural or Artificial Opening Endoscopic (ICD-10-PCS; 2021-11-18)
DX: K56.609 Unspecified intestinal obstruction, unspecified as to partial versus complete obstruction (principal); K29.71 Gastritis, unspecified, with bleeding; I48.0 Paroxysmal atrial fibrillation; E78.5 Hyperlipidemia, unspecified; Z20.822 Contact with and (suspected) exposure to COVID-19; E11.9 Type 2 diabetes mellitus without complications; Z79.4 Long term (current) use of insulin; Z93.2 Ileostomy status; Z85.038 Personal history of other malignant neoplasm of large intestine; Z79.01 Long term (current) use of anticoagulants; I69.320 Aphasia following cerebral infarction; K25.9 Gastric ulcer, unspecified as acute or chronic, without hemorrhage or perforation
CPT/HCPCS: 10879; 62110; 62900; 70005